=== PATIENT | male | born 1980 | race Caucasian/White ===

== ENCOUNTER 2021-04-20 14:55 | Outpatient (CLI) | payer OTHER, SELFPAY ==
--- NOTE | 2021-04-20 15:05 | RAD_ITS ---
STUDY: X-RAY - LEFT ANKLE REASON FOR EXAM: Male, 40 years old. fall, pain with ambulation TECHNIQUE: 3 view(s) of the ankle. COMPARISON: None. FINDINGS: Normal visualized distal tibia and fibula. Normal medial and lateral malleoli. Normal tibiotalar articulation and ankle mortise. Normal visualized talus and calcaneus. The visualized subtalar, talonavicular, calcaneocuboid and tarsal articulations are normal. Lateral more than medial soft tissue swelling. RAD/Ankle min 3 Views IMPRESSION: Lateral more than medial soft tissue swelling. No demonstrated fracture. Electronically Signed: Ronaldo Willams MD (Brooks) at 15:25 EST , Service support ,
== END 2021-04-20 23:59 | disposition short-term general hospital (02) ==
LOC: RAD 14:57
PROVIDERS: PCP Family Medicine; Visit Provider Physician Assistant
DX: R52 Pain, unspecified (principal); M79.89 Other specified soft tissue disorders
CPT/HCPCS: 73610

== ENCOUNTER 2022-03-18 13:29 | Emergency (ER) | payer OTHER, SELFPAY ==
[2022-03-18 13:30] VITALS: BP 111/93; PULSE 76; RESP 15; TEMP 36.5; O2SAT 98; BMI 26.0
[2022-03-18] MEDS: Mixture 30 ML Bottle 20 ML TOPICAL (14:01)
[2022-03-18] MEDS: Oxymetazoline 0.05% 1 SPRAY SPRAY.BTL 2 SPRAY NASAL (14:01)
--- NOTE | 2022-03-18 14:36 | EX.ED.DYSGE1 ---
HPI <KILEY Jay - Last Filed: 03/18/22 17:32> History of Present Illness Chief Complaint: Nosebleed Narrative Narrative: Patient presents today with epistaxis from his left nostril that started almost 2 hours prior to coming to the ED. Patient states this is his second nosebleed this week, however, the first one did not last this long and only lasted around 15 minutes. Patient denies injury to his nose. Patient is not on any blood thinners and states the only medication he takes is for anxiety. Patient has a history of allergies and notices he has been more congested lately. Patient is also both inside and outside in the cold a lot for work. PFSH <KILEY Jay - Last Filed: 03/18/22 17:32> PFSH Medical History no medical history Home Medications Ibuprofen [Motrin] 800 mg PO Q6H PRN PRN Pain 07/13/13 [History Last Taken Unknown] amoxicillin 500 mg tablet 500 mg PO Q8H 07/13/13 [History Last Taken 07/13/13 20:00 500 MG] hydrocodone-acetaminophen 5-325mg 5mg-325mg 1 - 2 tab PO Q4H PRN PRN Pain #20 TABLETS 06/15/14 [Rx Last Taken Unknown] hydrocodone-acetaminophen 5-325mg 5mg-325mg 1 - 2 tab PO Q4H PRN PRN Pain #20 TABLETS 07/16/14 [Rx Last Taken Unknown] ketorolac 10 mg tablet 10 mg PO Q6H PRN Pain #14 TABLETS 07/16/14 [Rx Last Taken Unknown] ondansetron 4 mg disintegrating tablet 4 mg PO Q8H PRN PRN Nausea #10 tabs 07/16/14 [Rx Last Taken Unknown] tamsulosin 0.4 mg capsule 0.4 mg PO DAILY 14 days 07/16/14 [Rx Last Taken Unknown] Allergy/AdvReac Type Severity Reaction Status Date / Time bee pollen Allergy Mild breathing Verified 04/20/21 13:30 Family History no significant family his Surgical History no surgical history Social History Smoking Status: Current some day smoker tobacco type: cigarettes ROS <KILEY Jay - Last Filed: 03/18/22 17:32> ROS ED Constitutional Constitutional ED: Denies chills, fever(s) or sweats Eyes Eyes: Denies blurry vision or change in vision ENT ENT ED: Reports nasal congestion and rhinorrhea; Denies sore throat Cardiovascular Cardiovascular: Denies chest pain or palpitations Respiratory/Chest Respiratory/Chest: Denies cough, dyspnea or dyspnea on exertion Gastrointestinal Gastrointestinal: Denies abdominal pain, diarrhea, nausea or vomiting Genitourinary Genitourinary ED: Denies dysuria, hematuria or urinary frequency Musculoskeletal Musculoskeletal: Denies back pain, myalgias or neck pain Integumentary Denies abscess, Abrasions or rash Neurologic Neurologic: Denies headache(s), paresthesias or weakness Psychiatric Psychiatric: Denies anxiety, depression or suicidal ideation Hematologic/Lymphatic Hematologic/Lymphatic: Denies easy bleeding or easy bruising EXAM <KILEY Jay - Last Filed: 03/18/22 17:32> Physical Exam Const Vital Signs: 03/18/22 13:30 Temperature 97.7 F L Temperature Source Temporal Pulse Rate 76 Respiratory Rate 15 Blood Pressure 111/93 H Blood Pressure Mean 99 Pulse Ox 98 Oxygen Delivery Method Room Air Positive well nourished and well developed General Appearance ED: well developed and NAD HEENT Reports moist mucous membranes HEENT Narrative: No blood in the back of the throat. No bleeding upon examination. No active bleeding vessel in Kiesselbach's plexus. Negative for trauma or tenderness Nose: external nose normal, nares normal and mucous membranes and turbinates abnormal Positive for erythematous Eyes PERRL and EOMs intact bilaterally Neck no lymphadenopathy and supple Chest Wall inspection of chest normal Resp normal respiratory effort and clear to auscultation bilaterally Cardio regular rate, regular rhythm and no murmurs GI non-tender, non-distended and no masses Palpation: soft Back/Spine normal ROM and normal to inspection Extremity normal to inspection Neuro oriented x3, CN's II-XII intact bilaterally and no sensory deficits noted Sensorium / Orientation: alert Motor Exam: strength 5/5 throughout Psych mental status grossly normal Skin no rashes or lesions noted, no wounds and skin turgor normal General Skin Exam: elasticity normal <Dr. Sana Camacho MD - Last Filed: 03/18/22 16:08> Physical Exam Const Vital Signs: 03/18/22 13:30 Temperature 97.7 F L Temperature Source Temporal Pulse Rate 76 Respiratory Rate 15 Blood Pressure 111/93 H Blood Pressure Mean 99 Pulse Ox 98 Oxygen Delivery Method Room Air [facility] <KILEY Jay - Last Filed: 03/18/22 17:32> [facility] Narrative Medical decision making narrative: Upon initial examination the bleeding has stopped in patient's nose. There was no blood dripping down the posterior oropharynx. Patient was then observed for several minutes and the bleeding slowly began again per patient. Upon reexamination the bleeding had stopped in patient's nose and I was unable to locate any bleeding vessels. However, a mixture of Afrin and shadi mix soaked onto a cottonball and inserted into the left nostril. Merisel packing placed. Patient has been given a referral to ENT and will follow up in the next 3 to 5 days to remove packing. Patient has been educated on minimize nosebleeds such as humidified air and keeping petroleum jelly in the nares. He has been given return instructions. I am comfortable with patient discharging home and patient is comfortable with plan. <Dr. Sana Camacho MD - Last Filed: 03/18/22 16:08> [facility] Treatment and Re-Evaluation Narrative: Patient seen and evaluated with ADILSON. I personally interviewed and examined the patient. I was involved in all aspects of patient's orders, interpretation of results, and treatment. Patient presents secondary left-sided epistaxis. Patient did have a more brief nosebleed couple days ago and then started bleeding again today. At the time of my initial evaluation bleeding has stopped. He denies recent facial trauma. Has had some mild URI symptoms that he attributed more to allergies. Patient sitting upright in bed no acute distress. Head and neck examination reveals right nare to be clear. Left nare reveals swollen turbinates. No obvious source of bleeding appreciated. Heart is regular rate and rhythm. Lung sounds are clear. Abdomen is soft and nontender. Neuro exam normal. While observing the patient and preparing his discharge remember, he did start bleeding again. Afrin was applied to the left nare and Merisel packing placed. Patient is to follow-up with ENT in the next 3 to 5 days for removal of packing and repeat exam. Discharge Plan Triage Chief Complaint: Nosebleed ED Midlevel Provider: Jossie Ryan ED Provider: Sana Camacho Dx/Rx/DC Orders Clinical Impression: Acute anterior epistaxis Instructions: ED Epistaxis (Adult) Prescriptions: No Action amoxicillin 500 MG tablet 500 mg PO Q8H Ibuprofen [Motrin] 800 MG tablet 800 mg PO Q6H PRN PRN (Reason: Pain) hydrocodone-acetaminophen 1 TABLET tablet 1 - 2 tab PO Q4H PRN PRN (Reason: Pain) Qty: 20 0RF hydrocodone-acetaminophen 1 TABLET tablet 1 - 2 tab PO Q4H PRN PRN (Reason: Pain) Qty: 20 0RF ondansetron 4 MG tablet 4 mg PO Q8H PRN PRN (Reason: Nausea) Qty: 10 0RF tamsulosin 0.4 MG capsule 0.4 mg PO DAILY 14 Days 0RF ketorolac 10 MG tablet 10 mg PO Q6H PRN (Reason: Pain) Qty: 14 0RF Primary Care Provider: Matt Taylor Referrals: Waldemar Hampton MD [Med Staff - Active Staff] - 3-5 Days Matt Taylor MD [Primary Care Provider] - None Activity Restrictions/Additional Instructions: Please follow-up with ENT in 3 to 5 days to remove nasal tampon. Disposition Disposition: Home, Self Care Discharge Date/Time: 03/18/22 15:38
== END 2022-03-18 15:38 | disposition home or self-care (01) ==
PROVIDERS: Emergency Provider Emergency Medicine; PCP Family Medicine; Visit Provider Emergency Medicine
DX: R04.0 Epistaxis (principal); F17.210 Nicotine dependence, cigarettes, uncomplicated
CPT/HCPCS: 30901; 99282

== ENCOUNTER 2022-12-28 11:16 | Emergency (ER) | payer OTHER, SELFPAY ==
[2022-12-28 11:18] VITALS: BP 112/70; PULSE 95; RESP 14; TEMP 35.5; O2SAT 99; BMI 26.6
[2022-12-28] MEDS: Lidocaine 1% (20 ml mdv) 20 ML Vial INFILT (11:36)
[2022-12-28] MEDS: Diphth,Pertuss(Acell),Tet Vac 0.5 ML Vial IM (11:36)
--- NOTE | 2022-12-28 11:47 | EX.ED.GENINJ ---
HPI History of Present Illness Chief Complaint: Trauma Informant: patient Narrative Narrative: 42-year-old male presenting to the emergency room with the chief complaint of chest injury. Patient states that last night approximately 10 hours prior to arrival he was [place] when he hit a metal pole with rust on it causing laceration to his chin. He states he has not seen at but bystanders/friends bandaged it. Continued to bleed. He notes his last tetanus was maybe 5 to 10 years ago. No loss of consciousness. He denies any dental injury. No difficulty opening or closing the jaw. Denies any change in voice or breathing or handling of food/drink. He denies other injuries Tetanus Immunization: 5-10 years PFS PFS Medical History no medical history Home Medications Ibuprofen [Motrin] 800 mg PO Q6H PRN PRN Pain 07/13/13 [History Last Taken Unknown] amoxicillin 500 mg tablet 500 mg PO Q8H 07/13/13 [History Last Taken 07/13/13 20:00 500 MG] hydrocodone-acetaminophen 5-325mg 5mg-325mg 1 - 2 tab (1 - 2 x 5-325 mg) PO Q4H PRN PRN Pain #20 TABLETS 06/15/14 [Rx Last Taken Unknown] hydrocodone-acetaminophen 5-325mg 5mg-325mg 1 - 2 tab (1 - 2 x 5-325 mg) PO Q4H PRN PRN Pain #20 TABLETS 07/16/14 [Rx Last Taken Unknown] ketorolac 10 mg tablet 10 mg PO Q6H PRN Pain #14 TABLETS 07/16/14 [Rx Last Taken Unknown] ondansetron 4 mg disintegrating tablet 4 mg PO Q8H PRN PRN Nausea #10 tabs 07/16/14 [Rx Last Taken Unknown] tamsulosin 0.4 mg capsule 0.4 mg PO DAILY 14 days 07/16/14 [Rx Last Taken Unknown] Allergy/AdvReac Type Severity Reaction Status Date / Time bee pollen Allergy Mild breathing Verified 12/28/22 11:17 Family History unable to obtain Surgical History no surgical history Social History Smoking Status: Current some day smoker tobacco type: cigarettes ROS ROS ED Constitutional Constitutional ED: Denies chills or weight loss Eyes Eyes: Denies change in vision or diplopia ENT ENT ED: Denies ear pain, rhinorrhea or sore throat Cardiovascular Cardiovascular: Denies chest pain, orthopnea, palpitations or racing heartbeat Respiratory/Chest Respiratory/Chest: Denies cough, dyspnea or orthopnea Gastrointestinal Gastrointestinal: Denies abdominal pain, diarrhea, nausea or vomiting Genitourinary Genitourinary ED: Denies dysuria, hematuria or urinary frequency Musculoskeletal Musculoskeletal: Denies arthralgias, back pain, myalgias or neck pain Integumentary Reports other Details: Chin laceration ; Denies abscess or rash Neurologic Neurologic: Denies headache(s) or weakness Psychiatric Psychiatric: Denies anxiety, depression, suicidal ideation or suicidal thoughts Endocrine Endocrinology: Denies polydipsia, polyphagia or polyuria Allergic/Immunologic Allergic/Immunologic ED: Denies mouth swelling, tongue swelling or urticaria EXAM Physical Exam Const Vital Signs: 12/28/22 11:18 12/28/22 11:39 Temperature 95.9 F L Temperature Source Temporal Pulse Rate 95 Respiratory Rate 14 Respiratory Effort Normal Blood Pressure 112/70 Blood Pressure Mean 84 Pulse Ox 99 Oxygen Delivery Method Room Air Room Air Positive well nourished and well developed General Appearance ED: well developed and NAD HEENT Reports normocephalic, head/scalp atraumatic and moist mucous membranes HEENT Narrative: No dental trauma. No malocclusion. Mandible is nontender. Eyes PERRL and EOMs intact bilaterally Neck full ROM, no lymphadenopathy, supple and no JVD Resp normal respiratory effort and clear to auscultation bilaterally Cardio regular rate, regular rhythm and no murmurs GI normal to inspection, nondistended, normoactive bowel sounds and non-tender Palpation: soft Back/Spine no CVA tenderness and normal ROM Extremity normal to inspection General Extremety ED: Negative for edema General Extremity: Negative for edema Neuro oriented x3 and CN's II-XII intact bilaterally Sensorium / Orientation: alert Motor Exam: strength 5/5 throughout Psych mental status grossly normal Mood & Affect: Negative for depressed or tearful Skin no rashes or lesions noted Skin Narrative: There is a 2 cm linear laceration that is gaping chin. No foreign bodies noted. It is not through and through. MDM MDM MDM Narrative Medical decision making narrative: Tetanus was updated. Wound was locally anesthetized using 1% lidocaine. After adequate anesthesia the wound was washed with Shur-Clens and explored. It was irrigated using sterile saline. Wound was closed using a total of 4 simple interrupted 5-0 Ethilon sutures. Good wound edge approximation. Patient tolerated procedure well. Wound will be dressed by nursing. Stitches will need to be removed in 5 to 7 days. Patient to return if worsening or concerns Discharge Plan Triage Chief Complaint: Trauma ED Provider: Montez Huitron Dx/Rx/DC Orders Clinical Impression: Need for [id number] (Tdap) vaccine, Chin laceration Instructions: ED Laceration, Chin, Suture or Tape Prescriptions: No Action amoxicillin 500 MG tablet 500 mg PO Q8H Ibuprofen [Motrin] 800 MG tablet 800 mg PO Q6H PRN PRN (Reason: Pain) hydrocodone-acetaminophen 1 TABLET tablet 1 - 2 tab PO Q4H PRN PRN (Reason: Pain) Qty: 20 0RF hydrocodone-acetaminophen 1 TABLET tablet 1 - 2 tab PO Q4H PRN PRN (Reason: Pain) Qty: 20 0RF ondansetron 4 MG tablet 4 mg PO Q8H PRN PRN (Reason: Nausea) Qty: 10 0RF tamsulosin 0.4 MG capsule 0.4 mg PO DAILY 14 Days 0RF ketorolac 10 MG tablet 10 mg PO Q6H PRN (Reason: Pain) Qty: 14 0RF Primary Care Provider: Matt Taylor Referrals: Matt Taylor MD [Primary Care Provider] - 5 Days for suture removal (Stitches will need to be removed 5 to 7 days) Disposition Disposition: Home, Self Care
== END 2022-12-28 12:09 | disposition home or self-care (01) ==
LOC: ED 11:56
PROVIDERS: Emergency Provider Emergency Medicine; PCP Family Medicine; Visit Provider Emergency Medicine
DX: S01.81XA Laceration without foreign body of other part of head, initial encounter (principal); F17.210 Nicotine dependence, cigarettes, uncomplicated; W22.09XA Striking against other stationary object, initial encounter; Z23 Encounter for immunization
CPT/HCPCS: 12011; 90471; 90715; 99283

== ENCOUNTER 2023-09-21 12:16 | Emergency (ER) | payer OTHER, SELFPAY ==
[2023-09-21 12:17] VITALS: BP 84/71; PULSE 102; RESP 18; TEMP 36.2; O2SAT 96; BMI 21.4
[2023-09-21 12:38] VITALS: BP 143/67
--- NOTE | 2023-09-21 12:39 | EDS_ITS ---
HPI HPI - Psych History of Present Illness Chief Complaint: Mental Health Informant: patient Onset/Context/Timing Onset: Days Context: Gradual Onset Conflict: Family Timing: Continuous Current Severity: Moderate Maximum Severity: Moderate Associated Symptoms Associated Symptoms - Psych: Positive for Depressed and Suicidal Thoughts Specific plan (suicidal thought): Patient denies Narrative Narrative: 43-year-old male history depression. Recently was in senior care and was released today when his mom posted valdez. He has a history of methamphetamine abuse. He spoke to crisis today he has been from his 6-month-old daughter. He is been making suicidal statements. They wrote a pink slip and wanted him sent to the ER for medical clearance so they could get him admitted to a psychiatric facility. Prior similar symptoms: Yes Recent Illness/Hospitalization: No PFSH PFSH Home Medications ?Medication ?Instructions ?Recorded ?Last Taken ?Type Ibuprofen [Motrin] 800 mg PO Q6H PRN PRN Pain 07/13/13 Unknown History amoxicillin 500 mg tablet 500 mg PO Q8H 07/13/13 07/13/13 20:00 History 500 MG hydrocodone-acetaminophen 5-325mg 1 - 2 tab (1 - 2 x 5-325 mg) PO 06/15/14 Unknown Rx 5mg-325mg Q4H PRN PRN Pain #20 TABLETS hydrocodone-acetaminophen 5-325mg 1 - 2 tab (1 - 2 x 5-325 mg) PO 07/16/14 Unknown Rx 5mg-325mg Q4H PRN PRN Pain #20 TABLETS ketorolac 10 mg tablet 10 mg PO Q6H PRN Pain #14 TABLETS 07/16/14 Unknown Rx ondansetron 4 mg disintegrating 4 mg PO Q8H PRN PRN Nausea #10 tabs 07/16/14 Unknown Rx tablet tamsulosin 0.4 mg capsule 0.4 mg PO DAILY 14 days 07/16/14 Unknown Rx Allergy/AdvReac Type Severity Reaction Status Date / Time bee pollen Allergy Mild breathing Verified 09/21/23 12:17 Social History Smoking Status: Current some day smoker tobacco type: cigarettes ROS ROS ED ROS Narrative Denies recent illness. Review of Systems ROS Unobtainable: Denies due to encephalopathy Constitutional Constitutional ED: Denies chills or fever(s) Eyes Eyes: Denies blurry vision ENT ENT ED: Denies ear pain Cardiovascular Cardiovascular: Denies chest pain or palpitations Respiratory/Chest Respiratory/Chest: Denies cough or dyspnea Gastrointestinal Gastrointestinal: Denies abdominal pain Genitourinary Genitourinary ED: Denies dysuria or hematuria Musculoskeletal Musculoskeletal: Denies arthralgias Integumentary Denies abscess or Abrasions Neurologic Neurologic: Denies headache(s) Psychiatric Psychiatric: Reports depression, suicidal ideation and suicidal thoughts; Denies anxiety Endocrine Endocrinology: Denies polydipsia or polyphagia Hematologic/Lymphatic Hematologic/Lymphatic: Denies easy bleeding or easy bruising Allergic/Immunologic Allergic/Immunologic ED: Denies mouth swelling or tongue swelling EXAM Physical Exam Narrative Exam Narrative: Well-appearing 43-year-old male sitting upright in bed. No distress. Vital signs stable afebrile. He is emotionally upset and at times tearful but he is cooperative and not violent. H EENT exam unremarkable. Neck nontender. No signs of trauma. Lungs clear to auscultation bilaterally. Heart regular rhythm rate about 95 no murmur. Chest wall and ribs nontender. Abdomen soft nontender tender. Patient moving all 4 extremities. Nontender no edema. No signs of trauma or lacerations. Back nontender. Neurologically is awake and alert no focal motor deficits. Const Vital Signs: 09/21/23 12:17 09/21/23 12:38 09/21/23 14:17 Temperature 97.1 F L 98.1 F Temperature Source Temporal Oral Pulse Rate 102 H 78 Respiratory Rate 18 16 Blood Pressure 84/71 L 143/67 H 139/88 H Blood Pressure Mean 75 92 105 Pulse Ox 96 97 Oxygen Delivery Method Room Air Room Air Positive well nourished and well developed; Negative for obese, cachectic, contractures or unkempt General Appearance ED: well developed and NAD; Negative for unkempt, cachectic, contractures or pallor Nutritional Appearance: Negative for cachectic or obese HEENT Reports moist mucous membranes normocephalic and atraumatic; Negative for trauma or tenderness Eyes PERRL and EOMs intact bilaterally General Eye ED: Negative for pale conjunctiva, scleral icterus or other Neck no lymphadenopathy, supple and no JVD General: Negative for tenderness Resp normal respiratory effort and clear to auscultation bilaterally Effort and Inspection: Negative for retractions Auscultation: Negative for rales, rhonchi, wheezes or diminished lung sounds Cardio S1 normal heart sound, S2 normal heart sound and no murmurs Palpation: Negative for other Rate: regular rate Rhythm: regular rhythm GI non-tender, non-distended and no masses Inspection: Negative for abdominal distention Auscultation: normoactive bowel sounds Palpation: soft; Negative for tender or guarding Back/Spine no CVA tenderness General Back: Negative for CVA tenderness Cervical Spine: Negative for cervical spine tenderness Thoracic Spine / Upper Back: Negative for thoracic spinal tenderness Lumbar Spine / Lower Back: Negative for lumbar spinal tenderness Extremity normal to inspection General Extremety ED: Negative for edema or tenderness General Extremity: Negative for edema Neuro oriented x3 and CN's II-XII intact bilaterally Sensorium / Orientation: alert, oriented to person, oriented to place and oriented to time; Negative for orientation impaired, confused or lethargic Motor Exam: strength 5/5 throughout Psych mental status grossly normal, thought process normal, cooperative, speech normal, activity/motor behavior normal, denies hallucinations and denies steve icidal ideation; Negative for affect normal Appearance: grossly normal, appropriate and well kempt; Negative for unkempt, disheveled or bizarre Attitude: calm, engaged, No paranoid, No withdrawn, No bizarre, No uncooperative, evasive and guarded Activity / Motor Behavior: appropriate eye contact Speech: normal speech Mood & Affect: depressed Thought Process: normal thought process Thought Content: suicidality Attention / Concentration: attention grossly intact Memory / Cognition: memory grossly intact Insight: insight good Judgement: judgement good Skin General Skin Exam: Negative for jaundice or pallor Lesions: no lesions Rashes: no rashes Trauma: Negative for abrasion Wounds: Negative for amputation MDM MDM MDM Narrative Medical decision making narrative: 43-year-old male depressed and suicidal. Screening labs are being obtained. Started been evaluated by crisis. Plan is for mental health placement. Initially his blood pressure was 84 71-year-old think that saccular be repeated. He does not look dehydrated. His exam is benign. Repeat exam patient is doing well at 2:20 PM. Awaiting crisis working on placement for depression and suicidal ideation. Currently stable. He has not needed to be medicated. Patient does not believe he is suicidal anymore. He was assessed 2 days ago in senior care. That is why he was sent him here. His mom really does not wish him to be sent to a mental health hospital if at all possible. I spoke to crisis to come back to reassess the patient to make a decision if he could be treated as outpatient or if he has to be sent to a mental health hospital and be admitted. History & Record Review Discussion w/independent historian: Patient Lab Data Attestation: I reviewed the patient's lab results. Lab results narrative: CBC normal. White count 8. H&H 14 and 45. Platelets 300,000. Electrolytes unremarkable gap 5. Normal BUN and creatinine 0.6. Glucose 138. Urine tox screen negative. Alcohol negative. Labs: Laboratory Results - last 24 hr 09/21/23 12:34 WBC 8.7 RBC 4.94 Hgb 14.9 Hct 45.0 MCV 91.1 MCH 30.2 MCHC 33.1 RDW Std Deviation 42.6 RDW Coeff of Dulce Maria 12.9 Plt Count 300 MPV 11.2 Immature Gran % (Auto) 0.200 Neut % (Auto) 78.2 H Lymph % (Auto) 15.9 L [place] % (Auto) 3.7 Eos % (Auto) 1.3 Baso % (Auto) 0.7 Absolute Neuts (auto) 6.8 Absolute Lymphs (auto) 1.39 Nucleated RBC % 0 Sodium 141 Potassium 3.7 Chloride 107 Carbon Dioxide 29.0 Anion Gap 5 BUN 16 Creatinine 0.66 L Estim Creat Clear Calc 146.38 Est GFR (MDRD) Af Amer 170 Est GFR (MDRD) Non-Af 140 BUN/Creatinine Ratio 24.3 H Glucose 138 H Calcium 9.0 Urine Opiates Screen NEGATIVE Urine Methadone Screen NEGATIVE Ur Barbiturates Screen NEGATIVE Ur Phencyclidine Scrn NEGATIVE Ur Amphetamines Screen NEGATIVE MDMA (Ecstasy) Screen NEGATIVE U Benzodiazepines Scrn NEGATIVE Urine Cocaine Screen NEGATIVE U Cannabinoids Screen NEGATIVE Ur Drug Screen Comment Ethyl Alcohol < 3.0 Discharge Plan Triage Chief Complaint: Mental Health ED Provider: Brennen Vincent Dx/Rx/DC Orders Clinical Impression: Depression, Suicidal ideation Prescriptions: No Action amoxicillin 500 MG tablet 500 mg PO Q8H Ibuprofen [Motrin] 800 MG tablet 800 mg PO Q6H PRN PRN (Reason: Pain) hydrocodone-acetaminophen 1 TABLET tablet 1 - 2 tab PO Q4H PRN PRN (Reason: Pain) Qty: 20 0RF hydrocodone-acetaminophen 1 TABLET tablet 1 - 2 tab PO Q4H PRN PRN (Reason: Pain) Qty: 20 0RF ondansetron 4 MG tablet 4 mg PO Q8H PRN PRN (Reason: Nausea) Qty: 10 0RF tamsulosin 0.4 MG capsule 0.4 mg PO DAILY 14 Days 0RF ketorolac 10 MG tablet 10 mg PO Q6H PRN (Reason: Pain) Qty: 14 0RF Primary Care Provider: Matt Taylor Referrals: Matt Taylor MD [Primary Care Provider] - Print Language: Bengali Disposition Disposition: Psychiatric Hospital or Unit
[2023-09-21 13:12] LABS: Absolute Lymphocyte Count 1.39 X10^3/uL (0.83-4.51); Absolute Neutrophil Count 6.8 X10^3/uL (2.0-7.7); Basophil# 0.06 X10^3/uL; Basophil% 0.7 % (0-1); Eosinophil# 0.11 X10^3/uL; Eosinophils% 1.3 % (0-5); Hemoglobin 14.9 g/dL (13.0-16.5); Lymphocyte # 1.39 X10^3/ul (0.83-4.51); Lymphocyte % 15.9 % (19-41); Mean Corp Hgb Conc 33.1 g/dL (32-36); Mean Corpuscular Hgb 30.2 pg (27.0-32.0); Mean Corpuscular Volume 91.1 fL (80-94); Mean Platelet Vol. 11.2 fl (6.2-12.0); Monocyte# 0.32 X10^3/uL; Monocyte% 3.7 % (0-10); NRBC Flagged by Analyzer 0 % (0-5); Neutrophil # 6.83 X10^3/uL (2.7-7.7); Neutrophil % 78.2 % (47-70); Platelet Count 300 K/mm3 (150-450); RBC Distribution Width CV 12.9 % (11.6-14.6); RBC Distribution Width SD 42.6 fl (35.1-43.9); Red Blood Count 4.94 M/mm3 (4.6-6.2); White Blood Count 8.7 K/mm3 (4.4-11.0)
[2023-09-21 13:25] LABS: Anion Gap 5 (5-15); BUN 16 mg/dL (7-18); BUN/Creat Ratio 24.3 RATIO (10-20); Chloride 107 mmol/L (98-107); Creatinine, Serum 0.66 mg/dL (0.70-1.30); EST Glomerular Filtration Rate 140 mL/min (>60); Est Glom Filt Rate - Afr Amer 170 mL/min (>60); Estimated Creatinine Clearance 146.38 ml/min; Glucose 138 mg/dL (74-106); Potassium 3.7 mmol/L (3.5-5.1); Sodium Level 141 mmol/L (136-145)
[2023-09-21 13:33] LABS: Amphetamine Urine VISTA NEGATIVE (<1000 ng/mL); Barbiturate Urine VISTA NEGATIVE (< 200 ng/mL); Benzodiazepine Urine VISTA NEGATIVE (< 200 ng/mL); Cocaine Urine VISTA NEGATIVE (< 300 ng/mL); Ecstacy Urine VISTA NEGATIVE (< 500 ng/mL); Methadone Urine VISTA NEGATIVE (< 300 ng/mL); PCP Urine VISTA NEGATIVE (< 25 ng/mL); THC Urine VISTA NEGATIVE (< 50 ng/mL); Vista UDS pH Range 6
[2023-09-21 13:44] LABS: Alcohol, Blood (Medical)-Serum < 3.0 mg/dL
--- NOTE | 2023-09-21 13:46 | ED.RN ---
CRISIS CALLED, CHART FAXED.
--- NOTE | 2023-09-21 13:55 | ED.RN ---
PT IS ASKING TO GO TO HIS MOM'S. EXPLAINED THAT HE IS PINK SLIPPED AND HE IS NOT GOING TO LEAVE THE HOSPITAL UNTIL HE IS EITHER CLEARED BY CRISIS OR PLACED IN A FACILITY. PT HAS BEEN EVALUATED BY CRISIS IN THE [place] AND IS BEING PLACED. PT STATES HE IS JUST SAD AND NOT SI NOW. EXPLAINED THE PROCESS AND MOM IS AGITATED THAT HE IS IN A ROOM WITHOUT A TV AND THAT HE SHOULD BE ABLE TO GO TO HER HOUSE. SHE STATES HE FEELS SI FREQUENTLY BUT HAS NEVER DONE ANYTHING. EXPLAINED TO THE MOM THAT HIS NURSE I DON'T WANT TO BE RESPONSIBLE FOR SENDING HIM HOME AND TODAY HE DECIDES TO DO SOMETHING TO HARM HIMSELF. HIS MOM AND PT BOTH AGREE HE IS VERY HOPEFUL BUT MOM HAS A NEGATIVE ATTITUDE ABOUT EVERYTHING IN THIS PROCESS AND IS CAUSING THE PT TO BE MORE ANXIOUS. EXPLAINED THIS IS HOW THINGS WILL CONTINUE AND IF THE MOM IS UNABLE TO BE SUPPORTIVE OF THE PT THROUGH THIS AND BE CALMING FOR HIM IT WOULD BE IN HIS BEST INTEREST IF SHE GOES HOME.
[2023-09-21 14:17] VITALS: BP 139/88; PULSE 78; RESP 16; TEMP 36.7; O2SAT 97
[2023-09-21 16:10] VITALS: BP 109/85; PULSE 73; RESP 15; TEMP 36.3; O2SAT 99
== END 2023-09-21 16:11 | disposition home or self-care (01) ==
PROVIDERS: Emergency Provider Emergency Medicine; PCP Family Medicine; Visit Provider Emergency Medicine
DX: R45.851 Suicidal ideations (principal); F17.210 Nicotine dependence, cigarettes, uncomplicated; F32.A Depression, unspecified; Z63.8 Other specified problems related to primary support group
CPT/HCPCS: 80048; 80307; 80320; 85025; 99283; G0480

== ENCOUNTER → 2024-07-22 | Outpatient (CLI) | payer MEDICAID, SELFPAY ==
[2024-07-26 13:08] LABS: QNTFERON TB Mitogen Value > 10.00 IU/mL (.); QNTFERON TB Nil Value 0.06 IU/mL (.); QNTFERON TB1+ Ag Value 0.06 IU/mL (.); QNTFERON TB2+ Ag Value 0.06 IU/mL (.); QNTIFERON TB Positive Criteria Negative (Negative)
== END | disposition home or self-care (01) ==
LOC: MTLAB 12:38
PROVIDERS: PCP Family Medicine; Referring Provider Physician Assistant Medical; Visit Provider Physician Assistant Medical
DX: L40.0 Psoriasis vulgaris (principal); M12.9 Arthropathy, unspecified; Z79.899 Other long term (current) drug therapy
CPT/HCPCS: 36415; 86480